=== PATIENT | female | born 1945 | race Caucasian/White ===

== ENCOUNTER → 2024-06-14 14:03 | Outpatient (REF) | payer OTHER, SELFPAY | LOC: WDC 14:03 | PROVIDERS: ATTENDING PHYSICIAN Family Medicine | DX: Z12.31 Encounter for screening mammogram for malignant neoplasm of breast (principal) | CPT/HCPCS: 77063; 77067 ==

== ENCOUNTER 2024-08-31 19:58 | Emergency (ER) | payer OTHER, SELFPAY ==
[2024-08-31 20:05] VITALS: BP 121/66
[2024-08-31 20:23] LABS: % Basophils 0.3 % (0-2); % Eosinophils 1.9 % (0-6); % Immature Granulocytes 0.2 % (0-0.5); % Lymphocytes 25.6 % (20.5-51.1); % Monocytes 6.9 % (1.7-9.3); % Neutrophils 65.1 % (42.2-75.2); Absolute Eosinophils 0.2 10^3/uL (0-0.7); Absolute Lymphocytes 2.3 10^3/uL (1.2-3.4); Absolute Monocytes 0.6 10^3/uL (0.1-0.6); Absolute Neutrophils 5.8 10^3/uL (1.4-6.5); Hematocrit 30.4 % (37.0-47.0); Hemoglobin 10.3 g/dL (12.0-16.0); Mean Corp Hgb Conc. 33.9 g/dL (33.0-37.0); Mean Corpuscular Hgb 29.7 pg (27.0-31.0); Mean Corpuscular Volume 87.6 fL (81.0-99.0); Mean Platelet Volume 9.5 fL (7.4-10.4); Nucleated Red Blood Cells % 0 %; Platelet Count 269 10^3/uL (130-400); Red Blood Cell Count 3.47 10^6/uL (4.20-5.40); Red Cell Dist. Width 13.3 % (11.5-14.5)
[2024-08-31 20:41] LABS: ALT (SGPT) 32 U/L (0-35); AST (SGOT) 35 U/L (14-36); Albumin 4.1 g/dl (3.5-5.0); Alkaline Phosphatase 69 U/L (38-126); Blood Urea Nitrogen 40 mg/dl (7-17); Carbon Dioxide 22 mmol/L (22-30); Chloride 108 mmol/L (98-107); Estimated Creatinine Clearance 22 ml/min; Glucose 103 mg/dl (70-99); Lipase 278 U/L (23-300); Potassium 4.4 mmol/L (3.5-5.1); Sodium 143 mmol/L (135-145); Total Bilirubin 0.8 mg/dl (0.2-1.3); Total Protein 6.4 g/dl (6.3-8.2); eGFR 33.01
[2024-08-31 23:06] VITALS: BP 149/82
--- NOTE | 2024-08-31 23:26 | ED.GENMED ---
History of Present Illness
<Yoselin Florez PA-C - Last Filed: 09/01/24 00:37>
General
Chief Complaint: Abdominal Symptoms
Source: patient
Exam Limitations: none
Time Seen by Provider: 08/31/24 22:45
Nursing documentation reviewed up to this point in time: agreed with except (pt denies any coffee ground emesis)
History of Present Illness
History of Present Illness:
pt is a 78 y/o F
h/o IDDM, HLD
here with severe back pain tonight that seems to have eased up but was sudden
she ate dinner and at the end felt a little naueated
then felt urge to have BM
had a looser stool than normal
while sitting there felt more nauseated, started sweating and felt like she may pass out
pt was able to stand up and walk to her bedroom but was feeling by that time a severe back pain diffuse that caused her pain with any movement
seh made it to her bed and laid down and hsubadn said she was pale as a ghost, sweaty, somewhat lethargic nearly passing out
ems had trouble convincing her to et up from lying there because of how much pain she was having
she now feels better
appaerntly EMS mentioned someting about coffee ground emesis but pt never vomited so this seems to be untrue
no fever, vomiting, abdominal pain, sob, weakness, numbness in legs
no h/o any aortic disease or cad
Past History
<Yoselin Florez PA-C - Last Filed: 09/01/24 00:37>
Past History
ED Past Medical History: Hypercholesterolemia and NIDDM
ED Past Surgical History: Cholecystectomy and Orthopedic
Patient has exhibited threatening behavior?: No
PSI?: No
Social History
Tobacco: Non-smoker
Alcohol: None
Drug: None
Personal:
Living: with family
Employment: Not employed
Family History
Family History: Diabetes
Review of Systems
<Yoselin Florez PA-C - Last Filed: 09/01/24 00:37>
Review of Systems
Allergies reviewed?: Yes
All Other Systems: Not applicable
Phy Exam
<Yoselin Florez PA-C - Last Filed: 09/01/24 00:37>
Physical Exam
Physical Exam:
GENERAL: Alert , seems mildly anxoius or uncomfortable but not in [id number]
EYE: pupils equal and reactive
NECK: Supple
ENT: o/p clr, mmm.
CARDIAC: Regular rate and rhythm .no murmur
LUNGS: Clear breath sounds bilaterally, no acute respiratory distress, no wheezes/rales/rhonchi
ABDOMEN: Soft, without focal tenderness, no r/g, no cvat, normal bowel sounds
back: normal inspection, notnendeer
seems to have some hestinacy with movement, but can breathe and bend
NEUROLOGICAL: Alert and oriented, no focal neuro deficits, strength intact, normal sensation
SKIN: Warm and dry, skin intact.
MUSCULOSKELETAL: No edema, well perfused. neg lois's sign
PSYCH: Normal and appropriate interaction.
Course
<Yoselin Florez PA-C - Last Filed: 09/01/24 00:37>
Orders/Labs/Results
Orders:
Orders
08/31/24 20:14
Complete Blood Count/With Diff Urgent
Comprehensive Metabolic Panel Urgent
Lipase Urgent
08/31/24 23:11
Electrocardiogram (*1) Urgent
Reason for Study: Abdominal Pain
EKG- Treatment ONCE
08/31/24 23:25
0.9% Sodium Chloride 1000 ml [Nss] 1,000 ml IV BOLUS
08/31/24 23:35
Troponin I Urgent
09/01/24 00:02
Ct Chest/Abd/Pel Angio W/Wo Iv Urgent
Reason For Exam: severe back pain, near syncope, eval dissection
09/01/24 01:25
Troponin I Urgent
Abnormal Lab Results
08/31/24 09/01/24
20:14 01:09
RBC 3.47 L 10^6/uL
(4.20-5.40)
Hgb 10.3 L g/dL
(12.0-16.0)
Hct 30.4 L %
(37.0-47.0)
Chloride 108 H mmol/L
(98-107)
BUN 40 H mg/dl
(7-17)
Creatinine 1.6 H mg/dL
(0.6-1.0)
Glucose 103 H mg/dl
(70-99)
POC Glucose 142 H mg/dl
(70-99)
08/31/24 20:14
08/31/24 20:14
Vital Signs
Initial and Last Documented VS:
Initial Vital Signs
Temp Pulse Resp BP Pulse Ox
97.9 F 95 16 121/66 99
08/31/24 20:05 08/31/24 20:05 08/31/24 20:05 08/31/24 20:05 08/31/24 20:05
Last Documented Vital Signs
Temp Pulse Resp BP Pulse Ox
98 F 100 15 127/68 97
09/01/24 01:18 09/01/24 00:30 09/01/24 00:30 09/01/24 00:00 09/01/24 00:30
polly;Jaya Powell, DO - Last Filed: 09/01/24 02:55>
Orders/Labs/Results
Orders:
Orders
08/31/24 20:14
Complete Blood Count/With Diff Urgent
Comprehensive Metabolic Panel Urgent
Lipase Urgent
08/31/24 23:11
Electrocardiogram (*1) Urgent
Reason for Study: Abdominal Pain
EKG- Treatment ONCE
08/31/24 23:25
0.9% Sodium Chloride 1000 ml [Nss] 1,000 ml IV BOLUS
08/31/24 23:35
Troponin I Urgent
09/01/24 00:02
Ct Chest/Abd/Pel Angio W/Wo Iv Urgent
Reason For Exam: severe back pain, near syncope, eval dissection
09/01/24 01:25
Troponin I Urgent
Abnormal Lab Results
08/31/24 09/01/24
20:14 01:09
RBC 3.47 L 10^6/uL
(4.20-5.40)
Hgb 10.3 L g/dL
(12.0-16.0)
Hct 30.4 L %
(37.0-47.0)
Chloride 108 H mmol/L
(98-107)
BUN 40 H mg/dl
(7-17)
Creatinine 1.6 H mg/dL
(0.6-1.0)
Glucose 103 H mg/dl
(70-99)
POC Glucose 142 H mg/dl
(70-99)
08/31/24 20:14
08/31/24 20:14
Vital Signs
Initial and Last Documented VS:
Initial Vital Signs
Temp Pulse Resp BP Pulse Ox
97.9 F 95 16 121/66 99
08/31/24 20:05 08/31/24 20:05 08/31/24 20:05 08/31/24 20:05 08/31/24 20:05
Last Documented Vital Signs
Temp Pulse Resp BP Pulse Ox
98 F 100 15 127/68 97
09/01/24 01:18 09/01/24 00:30 09/01/24 00:30 09/01/24 00:00 09/01/24 00:30
<Yoselin Florez PA-C - Last Filed: 09/01/24 00:37>
MDM/Problems Addressed
Differential Diagnosis Includes:
dissection, kidney stone, msk back spasm, vasovagal near syncope
MDM/Problems Addressed:
78-year-old female with a history of hyperlipidemia and not insulin-dependent diabetes presents for sudden onset of symptoms after eating dinner where she felt nauseous slightly and then moved her bowels and was subsequently feeling like she was
going to pass out, got up and had severe back pain and near syncope, was able to get herself to the bed and lay down but was profusely diaphoretic, pale, lethargic, complaining of some tingling in her fingertips and EMS had trouble getting her into
the stretcher because of how uncomfortable she was, seem to be provoked by movement. The pain lasted about 45 minutes before mostly resolving. She now feels much better. She has been here for a couple of hours without any worsening of symptoms.
She has not had any GI symptoms like vomiting or diarrhea, her initial bowel movement was slightly soft. Maybe she is coming down with gastroenteritis and had back spasm or referred pain, I suspect the profuse sweating and near syncope was a vagal
response to either her pain or nausea however is very concerning sounding story with the severe back pain with near syncope that given her risk factors would warrant workup to rule out a dissection. It is also possible she could have a kidney
stone. Patient was offered pain medication here but she declined. She is mildly tachycardic in the low 100s but seems anxious. She is not having pleuritic chest pain and no history of DVT or PE. She is status post a cholecystectomy in the past.
EKG is normal. Appreciate hemoglobin 10.3Which is stable for her. She has a slight MANDY and will be given some IV fluids but her GFR is over 30 and thus we will proceed with a CTA. Signed out to the ED attending at 00:30
<Jaya Powell DO - Last Filed: 09/01/24 02:55>
*Critical Care Note
Total Time (30-74mins, 75-104mins- exclusive of procedures): Not Applicable
<DO Lala Whiteside Last Filed: 09/01/24 02:55>
Patient Management
Social determinants of health affecting care: Living situation
<DO Lala Whiteside Last Filed: 09/01/24 02:55>
Update Note
Update Note:
CT ANGIOGRAM CHEST ABDOMEN AND PELVIS
IMPRESSION
AORTA:
No evidence of aneurysm or dissection, mild atherosclerosis. Supra -arch and mesenteric vessels are patent. No abdominal aortic aneurysm.
CHEST:
Mediastinum is unremarkable.
No evidence of central pulmonary embolism.
Mild atelectasis
ABDOMEN PELVIS:
Cholecystectomy. Fatty liver. Diverticulosis without evidence of diverticulitis.
Normal appendix coronal image [id number]
Spoke to patient and . Discussed CAT scan results. Reviewed lab work. Answered several questions.
Patient is in no distress at this time.
Patient to follow-up
ED Attending Note
<Yoselin Florez PA-C - Last Filed: 09/01/24 00:37>
-
Portions of this chart may have been created with voice recognition software.� Occasional wrong word or��sound alike� substitutions may have occurred due to the inherent limitations of voice recognition software.
<DO Lala Whiteside Last Filed: 09/01/24 02:55>
ED Attending Note
Patient seen and examined by attending physician: Yes
Discharge Plan
Departure
Patient Disposition: Home (Routine Discharge)
Date of Disposition: 09/01/24
Time of Disposition: 02:44
Patient with high blood pressure during this ER visit?: Yes
Discharge Problem:
Abdominal pain
Instructions: Abdominal Pain, BLOOD PRESSURE
Prescriptions:
No Action
metformin 500 MG tablet
500 mg PO BID
simvastatin 40 MG tablet
40 mg PO HS
glimepiride 1 MG tablet
4 mg PO BID
sitagliptin phosphate [Januvia] 100 MG tablet
100 mg PO DAILY
cyanocobalamin (vitamin B-12) 1,000 MCG capsule
1,000 mcg PO DAILY
methylprednisolone [Medrol (Cliff)] 4 MG tablets,dose pack
4 tab PO . DIRECT Qty: 1 0RF
Referrals:
[facility] [Outside]
NONE,* [Family Provider] -
Activity Restrictions/Additional Instructions:
It was a pleasure meeting you and taking part in your care. We hope for your continued healing and wellness.
Please read discharge instructions in their entirety. However, they are for general education and may not describe your exact diagnosis at discharge. Information on your ER visit and medical conditions were discussed with you along with appropriate
follow up information...
If indicated, please take your medications as instructed and indicated on discharge paperwork.
Please schedule a follow up appointment as directed. Call to schedule an appointment
Please return to the emergency department with ANY change in, persisting, or worsening of symptoms. If any of your symptoms do not improve, or persist, or become more severe within 6-12 hours, please return to the emergency department for further
care.
Please return to the emergency department if you develop a headache, neck pain/stiffness, fever greater than 100.4F, chest pain, shortness of breath, persistent nausea, vomiting, slurred speech, difficulty walking, numbness/tingling, weakness, signs
of infection or any other symptoms that are worrisome to you.
If you have any questions or concerns please do not hesitate to call the Hospital at or E-mail me directly at [email or web address]
Interventions
Interventions:
*Risk Screen - Suicide Last Done: 09/01/24 00:00
*General Assessment Last Done: 08/31/24 20:05
*Neglect/Abuse Screening Last Done: 08/31/24 20:05
*ED- Fall Risk Assessment Last Done: 09/01/24 00:00
*ED COVID-19 Vaccine History Last Done: 08/31/24 20:05
EM-Xcwvgi-Zqetoynjnl Assessment Last Done: 08/31/24 23:50
Discharge Date and Time
Print Language: NORWEGI[place]
[2024-08-31] MEDS: NSS 1000 IV (23:35)
[2024-09-01] VITALS: BP 127/68
[2024-09-01 00:10] LABS: Troponin I < 0.012 ng/ml
[2024-09-01 01:10] VITALS: BP 131/66
[2024-09-01 01:10] LABS: Glucose - Point of Care 142 mg/dl (70-99)
[2024-09-01 01:54] LABS: Troponin I < 0.012 ng/ml
[2024-09-01 02:00] VITALS: BP 131/72
[2024-09-01 03:00] VITALS: BP 132/71
== END 2024-09-01 03:18 | disposition home or self-care (01) ==
LOC: EMR 19:58
PROVIDERS: Emergency Medicine; Physician Assistant; EMERGENCY PHYSICIAN Student in an Organized Health Care Education/Training Program
DX: R10.9 Unspecified abdominal pain (principal); K57.30 Diverticulosis of large intestine without perforation or abscess without bleeding; K76.0 Fatty (change of) liver, not elsewhere classified; E11.9 Type 2 diabetes mellitus without complications; E78.00 Pure hypercholesterolemia, unspecified; Z79.4 Long term (current) use of insulin; Z90.49 Acquired absence of other specified parts of digestive tract; R00.0 Tachycardia, unspecified
CPT/HCPCS: 99284; 96360; 71275; 74174; 80053; 82962; 83690; 84484; 85025; 93005; Q9967